=== PATIENT | female | born 1980 | race Caucasian/White ===

== ENCOUNTER 2017-01-20 20:34 | Emergency (ER) | payer OTHER ==
[2017-01-20 21:08] VITALS: BP 124/72
--- NOTE | 2017-01-20 21:14 | UC ---
UC General HPI - HPI Summary HPI Summary: complaint of sunburn with blisters was ut in the sun 2 days ago and got a sunburn yesterday she noticed a blister on her right shoulder then this morning woke up and she has blisters on her back and shoulders has used aloe gel without relief sunburn not really painful anymore - History of Current Complaint Chief Complaint: [facility]CSkin Stated Complaint: SKIN COMPLAINT Time Seen by Provider: 01/20/17 21:09 Hx Obtained From: Patient - Allergy/Home Medications Allergies/Adverse Reactions: Allergies Allergy/AdvReac Type Severity Reaction Status Date / Time No Known Allergies Allergy Verified 01/20/17 21:03 PMH/Surg Hx/FS Hx/Imm Hx Previously Healthy: Yes - Surgical History Surgical History: Yes Surgery Procedure, Year, and Place: cholecystectomy, tubal - Family History Known Family History: Positive: None - Social History Occupation: Employed Full-time Lives: With Family Alcohol Use: Rare Substance Use Type: None Smoking Status (MU): Never Smoked Tobacco Review of Systems Constitutional: Negative Skin: Other - sunburn Eyes: Negative ENT: Negative Respiratory: Negative Cardiovascular: Negative Gastrointestinal: Negative Genitourinary: Negative Motor: Negative Neurovascular: Negative Musculoskeletal: Negative Neurological: Negative Psychological: Negative All Other Systems Reviewed And Are Negative: Yes Physical Exam Triage Information Reviewed: Yes Appearance: No Pain Distress, Well-Nourished Vital Signs: Initial Vital Signs Temp 98.6 F 01/20/17 21:04 Pulse 73 01/20/17 21:04 Resp 16 01/20/17 21:04 BP 124/72 01/20/17 21:04 Pulse Ox 98 01/20/17 21:04 Vital Signs Reviewed: Yes Eyes: Positive: Conjunctiva Clear ENT: Positive: Pharynx normal, TMs normal Neck: Positive: No Lymphadenopathy Respiratory: Positive: Lungs clear, Normal breath sounds, No respiratory distress Cardiovascular: Positive: RRR, No Murmur, Pulses Normal Abdomen Description: Positive: Nontender, Soft Bowel Sounds: Positive: Present Musculoskeletal: Positive: ROM Intact Neurological Exam: Normal Psychological Exam: Normal Skin: Positive: Other - arms, chest and back with sunburn, several blisters on both shoulders, back and chest Course/Dx - Differential Dx - Multi-Symptom Differential Diagnoses: Other - burn, cellulitis Provider Diagnoses: sunburn wuth blisters Discharge - Discharge Plan Condition: Stable Disposition: HOME Prescriptions: Silver Sulfadiazine 1%* [SILVadine 1%*] 1 applic TOPICAL BID #1 tube Patient Education Materials: Sunburn (ED) Referrals: Lupillo REINA,Becca Lawson [Primary Care Provider] - Additional Instructions: Please do not pop blisters on your shoulders and back start using silvadene on blistered and open areas as directed Increase fluids and rest Take acetaminophen or ibuprofen for fever or pain Please review your discharge instructions. If your symptoms do not improve please call your primary care provider or return to urgent care.
== END 2017-01-20 21:28 | disposition home or self-care (01) ==
LOC: UCCORT 20:34
DX: L55.1 Sunburn of second degree (principal)
CPT/HCPCS: 99212; G0463

== ENCOUNTER 2017-10-05 08:19 | Emergency (ER) | payer OTHER ==
[2017-10-05 08:45] VITALS: BP 133/82
--- NOTE | 2017-10-05 09:03 | UC ---
Respiratory Complaint HPI - HPI Summary HPI Summary: COUGH X 5 DAYS CHEST CONGESTION, WHEEZING HAD COLD SYMPTOMS LAST WEEK NO FEVER, NO CHILLS, - History of Current Complaint Chief Complaint: UCRespiratory Stated Complaint: UPPER RESPRITORY Time Seen by Provider: 10/05/17 08:55 Hx Obtained From: Patient Hx Last Menstrual Period: 3rd week Sep ?: No Onset/Duration: Gradual Onset, Lasting Days - 5, Still Present Timing: Constant Severity Initially: Moderate Severity Currently: Moderate Pain Intensity: 0 Character: Cough: Nonproductive Aggravating Factors: Exertion, Deep Breaths Alleviating Factors: Nothing Associated Signs And Symptoms: Positive: Pleuritic Chest Pain, Wheezing, URI, Nasal Congestion. Negative: Dyspnea, Fever, Chills, Hemoptysis, Dizziness, Calf Pain, Calf Swelling, Edema, Hoarseness, Sinus Discomfort - Allergies/Home Medications Allergies/Adverse Reactions: Allergies Allergy/AdvReac Type Severity Reaction Status Date / Time No Known Allergies Allergy Verified 10/05/17 08:35 Home Medications: Home Medications Cholecalciferol TAB* [Vitamin D TAB*] 15,000 units PO WEEKLY 10/05/17 [History Confirmed 10/05/17] PMH/Surg Hx/FS Hx/Imm Hx Endocrine History: Hypothyroidism - Surgical History Surgical History: Yes Surgery Procedure, Year, and Place: cholecystectomy, tubal ligation - Family History Known Family History: Positive: None Negative: Diabetes - Social History Alcohol Use: None Substance Use Type: None Smoking Status (MU): Never Smoked Tobacco Review of Systems Constitutional: Negative Skin: Negative Eyes: Negative ENT: Nasal Discharge Respiratory: Cough Cardiovascular: Negative Gastrointestinal: Negative Genitourinary: Negative Is Patient Immunocompromised?: No All Other Systems Reviewed And Are Negative: Yes Physical Exam Triage Information Reviewed: Yes Appearance: Well-Appearing, No Pain Distress, Obese Vital Signs: Initial Vital Signs Temp 98.2 F 10/05/17 08:40 Pulse 76 10/05/17 08:40 Resp 20 10/05/17 08:40 BP 133/82 10/05/17 08:40 Pulse Ox 100 10/05/17 08:40 Vital Signs Reviewed: Yes Eyes: Positive: Conjunctiva Clear ENT: Positive: Normal ENT inspection, Hearing grossly normal, Pharynx normal, Nasal drainage, TMs normal Neck exam: Normal Neck: Positive: Supple, Nontender, No Lymphadenopathy Respiratory: Positive: Chest non-tender, Lungs clear, Normal breath sounds Cardiovascular: Positive: RRR, No Murmur, Pulses Normal Skin Exam: Normal UC Diagnostic Evaluation - Laboratory O2 Sat by Pulse Oximetry: 100 Respiratory Course/Dx - Differential Dx/Diagnosis Provider Diagnoses: BRONCHITIS Discharge - Discharge Plan Condition: Stable Disposition: HOME Prescriptions: Albuterol HFA INHALER* [Ventolin HFA Inhaler*] 1 - 2 puff INH Q6H PRN #1 mdi PRN Reason: Wheezing Benzonatate CAP* [Tessalon 100 MG CAP*] 100 mg PO TID PRN #21 cap PRN Reason: Cough Patient Education Materials: Acute Bronchitis (ED) Referrals: Lupillo REINA,Becca Lawson [Primary Care Provider] - Additional Instructions: VIRAL BRONCHITIS NO NEED FOR ANTIBIOTICS
== END 2017-10-05 09:12 | disposition home or self-care (01) ==
LOC: UCCORT 08:19
DX: J40 Bronchitis, not specified as acute or chronic (principal); E03.9 Hypothyroidism, unspecified
CPT/HCPCS: 99212; G0463